=== PATIENT | male | born 1960 | race African-American/Black ===

== ENCOUNTER 2025-07-22 20:33 | Emergency (ER) | payer MEDICARE, SELFPAY ==
--- OUTSIDE RECORDS SUMMARY | 2025-07-09 17:40 | XMS_ITS | Encounter Summary ---
Author Organization [facility] Address [address] [place] [address] Care Team Providers Care Medicine Tech Name Role Phone Consultants, General Medical Primary Care Provid er Unavailable Reason for Visit * ReasonCommentsDental Pain Encounter Details DateTypeDepartmentCare Team (Latest Contact Info)Rnbschmnmkg35/30/2025 5:40 PM EST - 07/09/2025 6:27 PM [facility] Emergency Department [address] [place] [address] Virgil Sanderson Jr., MD [address] [place] [address] Discharge Disposition: Home Social History Tobacco UseTypesPacks/DayYears UsedDateSmoking Tobacco: Every DayCigarettes Smokeless Tobacco: NeverAlcohol UseStandard Drinks/WeekCommentsNo0 (1 standard drink = 0.6 oz pure alcohol)Sex and Gender InformationValueDate RecordedSex Assigned at BirthNot on fileLegal QgzWkwh7905/01/2015 4:12 AM EDTGender Identity Not on fileSexual OrientationNot on filedocumented as of this encounter Last Filed Vital Signs Vital SignReadingTime TakenCommentsBlood Mwegpgvp101/9911 5:43 PM EST Osuiz828407/09/2025 5:43 PM SGQZfnjciupvgr10.5 ??C (97.7 ??F)07/09/2025 5:43 PM ESTRespiratory Rjjz827809/08/2024 5:43 PM ESTOxygen Fgmicyzors62%07/09/2025 5:43 PM ESTInhaled Oxygen Concentration--Mpbqlv546.3 kg (230 lb)07/09/2025 5:43 PM PBVAifffi588.9 cm (6')07/09/2025 5:43 PM ESTBody Mass Index31.19109/08/2024 5:43 PM ESTdocumented in this encounter Discharge Instructions * Attachments The following attachments cannot be sent through Care Everywhere. * Tooth and Gum Pain (Turkish) documented in this encounter Medications at Time of Discharge MedicationSigDispense QuantityRefillsLast FilledStart DateEnd Date ferrous sulfate 325 (65 FE) MG tablet TAKE 1 TABLET BY MOUTH EVERY OTHER IWJ03604/22/2017 gabapentin (NEURONTIN) 400 MG capsule HUMIRA PEN 40 mg/0.8 mL PnKt Pen Injector 05/04/2017 lisinopril (PRINIVIL,ZESTRIL) 40 MG tablet TAKE 1 TABLET BY MOUTH EVERY ETB45904/22/2017 metFORMIN (GLUCOPHAGE) 850 MG tablet TAKE 1 TABLET BY MOUTH THREE TIMES BNYMF618 omeprazole (PRILOSEC) 20 MG capsule TAKE 1 CAPSULE BY MOUTH EVERY XQW424 ondansetron (ZOFRAN) 4 MG tablet TAKE 1 TABLET BY MOUTH EVERY EIGHT HOURS NEEDED for bulhbs920 doxycycline hyclate (VIBRA-TABS) 100 MG tablet Take 1 (one) tablet (100 mg total) by mouth 2 (two) times a day for 6 doses Start: 07/10/25. 6 tablet HYDROcodone-acetaminophen (NORCO) 5-325 mg per tablet Indications:Pain, dentalTake 1 (one) tablet by mouth every 6 (six) hours as needed for pain TAKE HOME PACK . 4 tablet documented as of this encounter ED Notes * Virgil Sanderson Jr., MD - 07/09/2025 5:44 PM EST ED PROVIDER NOTE [facility] EMERGENCY DEPARTMENT NAME: Last Perez AGE: 64 y.o. : 1960 VISIT DATE: 07/09/2025 CSN: [id number] PCP: Consultants, General Medical Chief Complaint Patient presents with Dental Pain Patient with increasing pain in his right upper and lower teeth over the past couple of months . He has an appointment scheduled for this Saturday, July 12, 2025 with a dentist for the first time in over 20 years . He recently took clindamycin which does not work as well as doxycycline for me . Past Medical History: Diagnosis Date COPD (chronic obstructive pulmonary disease) (HCC) Diabetes (HCC) GERD (gastroesophageal reflux disease) Hidradenitis HTN (hypertension) Past Surgical History: Procedure Laterality Date EXAM UNDER ANESTHESIA GENERAL 04/28/2017 rectal exam for shania-anal abscess...Crushing Foreman I AND D PERIANAL ABCESS 04/28/2017 Crushing Foreman History reviewed. No pertinent family history. Social History [1] Previous Medications Medication Sig ferrous sulfate 325 (65 FE) MG tablet TAKE 1 TABLET BY MOUTH EVERY OTHER DAY gabapentin (NEURONTIN) 400 MG capsule HUMIRA PEN 40 mg/0.8 mL PnKt Pen Injector lisinopril (PRINIVIL,ZESTRIL) 40 MG tablet TAKE 1 TABLET BY MOUTH EVERY DAY metFORMIN (GLUCOPHAGE) 850 MG tablet TAKE 1 TABLET BY MOUTH THREE TIMES DAILY omeprazole (PRILOSEC) 20 MG capsule TAKE 1 CAPSULE BY MOUTH EVERY DAY ondansetron (ZOFRAN) 4 MG tablet TAKE 1 TABLET BY MOUTH EVERY EIGHT HOURS NEEDED for nausea Allergies[2] Review of Systems HENT: Positive for dental problem. All other systems reviewed and are negative. Patient Vitals for the past 24 hrs: BP Temp Temp src Pulse Resp SpO2 Height Weight 07/09/25 1743 (!) 157/99 97.7 ??F (36.5 ??C) Oral 92 16 99 % 6' 104.3 kg (230 lb) Physical Exam Vitals and nursing note reviewed. Constitutional: Appearance: Normal appearance. HENT: Head: Normocephalic and atraumatic. Right Ear: External ear normal. Left Ear: External ear normal. Nose: Nose normal. Mouth/Throat: Mouth: Mucous membranes are moist. Dentition: Abnormal dentition. Dental caries present. No gingival swelling or dental abscesses. Pharynx: Oropharynx is clear. No pharyngeal swelling. Eyes: Extraocular Movements: Extraocular movements intact. Conjunctiva/sclera: Conjunctivae normal. Cardiovascular: Rate and Rhythm: Normal rate. Musculoskeletal: General: Normal range of motion. Cervical back: Normal range of motion. Pulmonary: Effort: Pulmonary effort is normal. Abdominal: General: There is no distension. Skin: General: Skin is warm and dry. Neurological: General: No focal deficit present. Mental Status: He is alert and oriented to person, place, and time. Psychiatric: Mood and Affect: Mood normal. Behavior: Behavior normal. Laboratory & Radiographic Imaging (if done): No results found for this visit on 07/09/25. No orders to display Procedures Medical Decision Making I will provide the patient with doxycycline to use until he is seen by the dentist at his previously scheduled appointment on July 12, 2025. I will give him a home pack of 4 hydrocodone/acetaminophen pills to use as needed if the pain is severe. I asked him to return and be reevaluated in the ERfor change worsening or new concern that arises. Amount and/or Complexity of Data Reviewed External Data Reviewed: notes. Details: 06/30/25 ER The patient has been informed that they may have pre-hypertension or hypertension based on a blood pressure reading in the Emergency Department. I recommend that the patient call the primary care provider listed on their discharge instructions or a physician of their choice as soon as possible to arrange follow-up in the next 4 weeks for further evaluation of possible pre-hypertension or hypertension. . Clinical Impression: 1. Pain, dental ED Disposition ED Disposition Discharge Condition Stable Comment Last Perez discharged to home/self care in stable condition. Follow-up Information Follow-up information has not been specified. Contact information for after-discharge care Follow-up information has not been specified. New Prescriptions doxycycline hyclate (VIBRA-TABS) 100 MG tablet Starting on 07/10/2025. Take 1 (one) tablet (100 mg total) by mouth 2 (two) times a day for 6 doses Start: 07/10/25. HYDROcodone-acetaminophen (NORCO) 5-325 mg per tablet Take 1 (one) tablet by mouth every 6 (six) hours as needed for pain TAKE HOME PACK . [1] Social History Socioeconomic History Marital status: Single Tobacco Use Smoking status: Every Day Current packs/day: 1.00 Types: Cigarettes Smokeless tobacco: Never Vaping Use Vaping status: Never Used Substance and Sexual Activity Alcohol use: No Drug use: No Social Drivers of Health Financial Resource Strain: Low Risk (05/10/2024) [facility] Overall Financial Resource Strain (CARDIA) Difficulty of Paying Living Expenses: Not hard at all Food Insecurity: No Food Insecurity (09/20/2024) Received from [facility] Hunger Vital Sign Within the past 12 months, you worried that your food would run out before you got the money to buymore.: Never true Within the past 12 months, the food you bought just didn't last and you didn't have money to get more.: Never true Transportation Needs: No Transportation Needs (09/20/2024) Received from [facility] PRAPARE - Transportation Lack of Transportation (Medical): No Lack of Transportation (Non-Medical): No Physical Activity: Inactive (05/05/2023) Received from [facility] Exercise Vital Sign On average, how many days per week do you engage in moderate to strenuous exercise (like a brisk walk)?: 0 days On average, how many minutes do you engage in exercise at this level?: 0 min Housing Stability: Low Risk (09/20/2024) Received from [facility] Housing Stability Vital Sign In the last 12 months, was there a time when you were not able to pay the mortgage or rent on time?: No In the past 12 months, how many times have you moved where you were living?: 0 At any time in the past 12 months, were you homeless or living in a snf (including now)?: No [2] Allergies Allergen Reactions Naproxen Nauseated only Sulfa (Sulfonamide Antibiotics) Virgil Sanderson Jr., MD 07/09/25 1800 * Nyasia Gibson RN - 07/09/2025 5:41 PM EST Pt c/o right sided dental pain in upper and lower jaw that has gradually been getting worse, becameunbearable this afternoon. documented in this encounter Plan of Treatment Not on file documented as of this encounter Visit Diagnoses Diagnosis Pain, dental- Primary documented in this encounter Administered Medications Medication OrderMAR ActionAction DateDoseRateSite doxycycline (VIBRAMYCIN) oral solid 100 mg 100 mg, Oral, Once, On 07/09/25 at 1800, For 1 dose, Do not crush or open. Patient to sit up after administration for 30 minutes after taking and take with at least 8 ounces of water Take 1 hour before or 4 hours after metallic cations (e.g.antacids, aluminum,magnesium, calcium, ferrous sulfate), Indication: Periodontitis Given07/09/2025 6:16 PM EPI946 mgdocumented in this encounter Active and Recently Administered Medications Times are shown in EST.Medication Order// doxycycline (VIBRAMYCIN) oral solid 100 mg (COMPLETED) 100 mg, Oral, Once, On 07/09/25 at 1800, For 1 dose, Do not crush or open. Patient to sit up after administration for 30 minutes after taking and take with at least 8 ounces of water Take 1 hour before or 4 hours after metallic cations (e.g.antacids, aluminum,magnesium, calcium, ferrous sulfate), Indication: Periodontitis * 1815 (Given - Provider: Nyasia Gibson RN) documented in this encounter Care Teams Team MemberRelationshipSpecialtyStart DateEnd Date Consultants, General Medical PCP - GeneralInternal Medicine05/05/17documented as of this encounter
--- OUTSIDE RECORDS SUMMARY | 2025-07-13 05:45 | XMS_ITS ---
Author Organization [facility] Address [address] [place] [address] Care Team Providers Care Procedure Writer Name Role Phone Dr. 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 Encounter Location Date Provider Diagnosis [facility] [address] [place] [address] 2024 Sea Mac Plan Of Treatment Next Appt Details Provider Name:Eveline Medrano, 10/25/2025 01:30:00 PM, [address], [place], [address], Provider Name:Sea Mac, 0 11/21/2025 04:30:00 PM, [address] [place], [address], Progress Notes * FIONA BROWN KDOB:0 1960 (64 yo M)Acc No.[id number]:07/13/2025 Patient:?FIONA BROWN :?Sea Mac, DDSDOB:1960???Age:64 Y???Sex: MaleDate:07/13/2025Phone:[phone]:[address] [place] [id number] Subjective: * Chief Complaints: * N P EXAM * Electronic signature of Dr. Sea Mac , [facility], [id number] on 07/22/2025 at 09:12 PM ESTSign off status: Pending * Provider: Mechelle Mac DDS Date: 1 09/13/2024 Generated for Printing/Faxing/eTransmitting on:?07/22/2025 09:12 PM EST
--- OUTSIDE RECORDS SUMMARY | 2025-07-15 17:07 | XMS_ITS | Continuity of Care Document ---
Author Organization [facility] Address [address] [place] [address] Phone Care Team Providers Care It Service Continuity Supervisor Name Role Phone César Mazariegos PA-C Emergency Provider Hansel Potts MD Primary Care Provider Care Teams Patient Care Team Team Status: Active Member Role/Relationship Status Dates Hansel Potts MD Primary Care Provider Active Patient Care Team Team Status: Inactive Member Role/Relationship Status Dates César Mazariegos PA-C Emergency Provider Active Start: July 15, 2025 End: July 15, 2025Magaly Jaquez Care ProviderActiveStart: July 15, 2025 End: July 15, 2025 Chief Complaint and Reason for Visit Chief Complaint Admit Date Dental Pain July 15, 2025 9 :19pm Allergies, Adverse Reactions, Alerts Allergen Type Severity Reaction Last Updated Verified Status Sulfa (Sulfonamide Antibiotics) Allergy Unknown Abdominal Pain July 15 10:00pm Yes Active Social History Smoking Status Status Start Date End Date Date of Observa tion Smokes tobacco daily (finding) July 15, 2025 9:43pm Observation Status Observation Response Date of Response Legal Sex Male (finding) Sex Assigned At [facility] 1960 Problems Active Problems Problem Diagnosis/Recorded Date Onset Date Stat us Toothache July 15, 2025 9:41pm Unknown Ac tive Inactive/Resolved Problems Problem Diagnosis/Recorded Date Onset Date Stat us Generalized abdominal pain February 09, 2025 9:50am Unkno wn Resolved Medications Medication Status Dose Units Route Directions Qty Days Refills S tart Date Stop Date End Date Reason(s) Instructions Adherence Metformin 1,000 mg tablet Active 1000 MG PO Daily February 08, 2025 11:00pmUnknownGlipizide 5 mg zifhtnKdmqyw8LTUNQbtaxIbfe 2024 11:00pmUnknownGabapentin 600 mg txpqalLizdaw360LQWVWssrzQjrc 2024 11:00pm UnknownBuspirone 15 mg doxfppIqtcnc93KHBRWmfsi times dailyJuly 2024 11:00pm UnknownHydroxyzine Pamoate 25 mg fupaqwtBukgaz98MUXLYrrii times dailyJuly 2024 11:00pmUnknownOmeprazole 20 mg capsule,delayed release(DR/EC)Itdmjl01MUBF DailyJuly 2024 11:00pmUnknownDicyclomine 20 mg cwhshlDkiyww22DQRLIpqy times daily as needed for abdominal ngwq029Hoil2024 11:00pmUnknownOndansetron 4 mg tablet,dvggcawqajhdxmBsayxu5HQFYMjtyp times daily as needed for nausea and hotnusyj4075Vjyz 2nd, 2025 11:00pmUnknownPenicillin V Potassium 500 mg tablet Rpehkw8923DDFLIorpd zqzor548Soabptfm 6th, 2025 12:00amUnknownChlorhexidine Gluconate 0.12 % qkjimuboaQixpeb17LKGAULVGOfrxr iaijk8025Uwhhsfgy 6th, 2025 12:00amUnknown Vital Signs Vital Reading Result Reference Range Collection Date/Time Height 72 [in_i] July 15, 2025 9:52oiCckuzy022.40 kgDece2024 9:22pmBody Xcjbvojiygu40.6 [degF]97.6-99.0Dece2024 9:22pmHeart Rate95 /gqb35-969 July 15, 2025 9:22pmRespiratory rate18 /hwj40-24Qdszlmuj 6th, 2025 9:22pm Oxygen saturation by Pulse ktxizmdk79 %95-100July 15, 2025 9:22pmBP Lracyczw509 mm[Hg]100-140Dece2024 9:22pmBP Cugzbpdlo18 mm[Hg]60-100 July 15, 2025 9:22pm Advance Directives Advance Directive Response Recorded Date/ Time Advance Directives No February 09 7:50am Insurance Providers Guarantor Last Hodge ey Address [address] [place] [id number] Info.Home Phone: Coverage Status Update:2025 Payer Group Member ID Coverage Type Subscriber Relationship to Subscriber Effective Date Expiration Date Medicaid [id number] K Mckinney Id: [id number] [address] [place] [id number] Home Phone: [employer] [id number] K Mckinney Id: [id number] [address] [place] [address] Home Phone: [employer] [id number] K Mckinney Id: [id number] [address] [place] [address] [facility] Phone: [facility] Id: [id number] K Mckinney Id: [id number] [address] [place] [phone] Home Phone: Self Encounters Encounter Location(s) Arrival/Admit Date Discharge/Departure Date Discharge/Departure Disposition Provider(s) Departed Emergency -Emergency Room July 15, 2025 9:19pm July 15, 2025 10:05pm Discharged to home care or self care (routine discharge) Plan of Treatment Future Tests Future scheduled test information is unavailable Pending Tests Pending diagnostic test information is unavailable Future Visits Future appointment information is unavailable Future Procedures Future procedure information is unavailable Future Medications Future medication information is unavailable Patient Instructions Instruction Admit Date Dental pain - ED discharge instructions July 15, 2025 9:19pm Hospital Discharge Instructions Additional Instructions Patient Instructions: You came to the ER today with dental pain. Dental pain is often caused by irritation of the nerves in the center of a tooth. This irritation can be due to a cavity, an infection, a cracked tooth, or gum disease. Based on your exam, you have no fever, and are not immunocompromised. Your airway is clear, and there are no signs of serious infections like a retropharyngeal abscess, peritonsillar abscess, or Claus???s angina. Your throat and mouth exam showed no bleeding sockets, or other concerning findings. You have no issues with your breathing. You are advised to continue managing your pain with vxho-juk-zzfrskk medications like ibuprofen (Advil) or acetaminophen (Tylenol) until you can see a dentist. If prescribed any medications, please take them as directed. Things to watch for and reasons to come back include: - Trouble breathing or swallowing - Swelling in your face or neck - Fever or chills - Difficulty opening or closing your mouth - Signs of infection, such as pus or red streaks around the area In the meantime, here are some tips to manage your pain: - Apply ice or a cold pack to the outside of your cheek for 10-20 minutes at a time. Use a thin cloth between the ice and your skin. Do not use heat. - Avoid very hot, cold, or sweet foods and drinks that may make your pain worse. - Rinse your mouth with warm salt water every 2 hours to help with pain and swelling. Mix 1 teaspoon of salt in 8 ounces of water. - Avoid smoking or using spit tobacco, as it can slow healing and make gum problems worse. If your symptoms worsen or you have any concerns, don???t hesitate to seek further medical care. Follow up with your dentist for a more detailed evaluation and treatment. It is very important that you follow up with your dentist or primary care provider in the next 1-2 days unless instructed to do otherwise. If you do not have a dentist please let staff know so you can be given information or use the [employer] website at [email or web address].org for providers in your area. If you do not have a primary care provider, you can contact the [facility] and ask about being established for primary care services. If you require specialist follow up, such as with an orthopedic physician, maintenance and custodian supervisor, urologist, or other medical specialty, you should contact the specialty clinic as soon as possible to schedule a follow up appointment. If you are established with a specialist, you can contact your preferred physician for follow up. If you are not already established with the specialist you need, you may have contact information provided to you with these discharge instructions. If you are being prescribed medications, take exactly as prescribed. Antibiotics, if prescribed, should be taken until the entire course is completed. You should not have left over antibiotics. Continue to take any previously prescribed home medications unless instructed otherwise. If you are experiencing fever or mild to moderate pain, you should first take Tylenol or ibuprofen available quzn-zoq-rudrncj. Medications, if prescribed to treat pain from the emergency department, are intended to provide relief for severe pain that is not relieved by other methods of pain relief, you should use these medications cautiously as many are known to cause sedation/sleepiness, increased risk for falls, and other effects such as constipation. If your symptoms worsen please return to the ED or if you have any other concerns
--- OUTSIDE RECORDS SUMMARY | 2025-07-19 06:07 | XMS_ITS | Continuity of Care Document ---
Author Organization [facility] Address [address] [place] [address] Phone Care Team Providers Care Radiology Transporter Name Role Phone Shaye De La Cruz DDS Unavailable Unavailable Allergies, Adverse Reactions, Alerts Substance Reaction Status Criticality Sulfa (Sulfonamide Antibiotics) Active No Information Medications Medication Instructions Dosage Effective Dates (start - stop) Status Comments hydrocodone 5 mg-acetaminophen 325 mg tablet TAKE 1 TABLET BY MOUTH EVERY 6 HOURS NEEDED - Active buspirone 15 mg tablet - Act nisha chlorhexidine gluconate 0.12 % mouthwash - Active penicillin V potassium 500 mg tablet - Active doxycycline hyclate 100 mg tablet TAKE 1 TABLET BY MOUTH TWICE DAILY for 6 (SIX) doses. - Active hydroxyzine pamoate 25 mg capsule TAKE 1 CAPSULE BY MOUTH THREE TIMES DAILY NEEDED FOR ITCHING or FOR ANXIETY - Active gabapentin 600 mg tablet - Active lisinopril 40 mg tablet - Ac tive clindamycin HCl 300 mg capsule TAKE 1 CAPSULE BY MOUTH TWICE DAILY FOR 10 DAYS - Active naproxen 500 mg tablet TAKE 1 TABLET BY MOUTH TWICE DAILY WITH MEALS FOR 10 DAYS - Active amitriptyline 50 mg tablet TAKE 1 TABLET BY MOUTH NIGHTLY NEEDED for sleep - Active atorvastatin 40 mg tablet - Active glipizide ER 5 mg tablet, extended release 24 hr - Active metformin 1,000 mg tablet TAKE 1 TABLET BY MOUTH TWICE DAILY WITH MEALS - Active omeprazole 20 mg capsule,delayed release TAKE 1 CAPSULE BY MOUTH IN THE MORNING and AT BEDTIME - Active albuterol sulfate HFA 90 mcg/actuation aerosol inhaler inhale 2 (TWO) puffs every 6 (SIX) hours NEEDED max OF EIGHT puffs per 24 hours - Active glipizide 5 mg tablet - Acti ve pantoprazole 40 mg tablet,delayed release - Active duloxetine 30 mg capsule,delayed release TAKE 2 CAPSULES BY MOUTH DAILY at 6 (SIX) a.m. - Active amoxicillin 875 mg-potassium clavulanate 125 mg tablet Take 1 tablet by mouth 2 times daily for 10 days - Active amlodipine 5 mg tablet TAKE ONE TABLET B Y MOUTH DAILY AT 9AM - Active dicyclomine 20 mg tablet - Active cephalexin 500 mg capsule - Active Symbicort 160 mcg-4.5 mcg/actuation HFA aerosol inhaler - Active tadalafil 20 mg tablet TAKE 1 TABLET BY MOUTH 1 to 2 (TWO) hours prior to intercourse DIRECTED NEEDED for erectile dysfunction - - do not exceed 20 mg within 24 hours - Active Dexcom G7 Computer Lab Assistant USE DIRECTED - A ctive Dexcom G7 Sensor device USE DIRECTED - Active Ear Drops (carbamide peroxide) 6.5 % place 5 (FIVE) drops in ear(s) TWICE DAILY - Active lidocaine 5 % topical patch APPLY 1 patch topically DAILY - - 12 hours on and 12 hours off DAILY - Active prednisone 20 mg tablet TAKE 3 TABLETS B Y MOUTH EVERY DAY FOR 2 DAYS, TAKE 2 TABLETS EVERY DAY FOR 2 DAYS, TAKE 1 TABLET EVERY DAY FOR 4 DAYS, then TAKE 1/2 (ONE-HALF) OF A TABLET EVERY DAY FOR 4 DAYS - Active brompheniramine-pseudoe phedrine-DM 2 mg-30 mg-10 mg/5 mL oral syrup TAKE 5 (FIVE) mLs BY MOUTH FOUR TIMES DAILY NEEDED for cold SYMPTOMS - Active amoxicillin 500 mg capsule TAKE 1 CAPSULE BY MOUTH THREE TIMES DAILY FOR 7 DAYS - Active Procedures Procedure Date Limited Oral Eval Oral Hygiene Instruction Advance Directives Directive Yes / No Effective Date File Name No Information Encounters Encounter Description Practice Location Reason(s) For Visit Diagnoses Date Provider Providers Copied on Encounter [facility], [address] [place] [address], [place], [place], [id number], tel:[phone] [facility] ER (chief complaint) Body mass index [BMI] 29.0-29.9, adultEncounter for screening for dental disorders Dorothy YDE Shaye. . tel:[phone] Family History Family Member Type Diagnosis Age At Onset No Information Payers Payer name Insurance type Covered libertarian ID Jean esquivel(s) [facility] [id number] Social History Type Description Quantity Date Captured Comments Alcohol Use Details Unknown Caffeine Use Details Unknown Tobacco Use Status Smoking Status Current every day smoker 2024 Non-Smoking Tobacco Use Details : No Details Available : No Details Available [id number] SexMale Vital Signs Date / Time: Height Weight BMI Pulse Rate Blood Pressure Temperature Respiratory Rate Body Surface Area Head Circumference Head Circ. Percentile Wt./Alexis. Percentile BMI percentile Pulse Ox Inhaled Ox 11:23 AM 72.00 in 99.790 kg (220.00 lbs) 29.8 4 kg/m eter (2) 130/80 mm[Hg] 98.10 F 2.25 meter(2) Chief Complaint And Reason For Visit From encounter dated '07/19/2025 11:07'. ER (chief complaint). Description: ER Reason For Referral Reason For Referral No Information Plan Of Treatment Date Type Action Status Goal Lipid panel. Due on 025 due Goal Unhealthy drug use screening . Due on due Goal Zoster vaccine (1st). Due on due Goal Hep A. Due on du e Goal Depression screening. Due on due Goal Influenza vaccine. Due on due Goal FOBT. Due on due Goal Tdap. Due on due Goal PRAPARE ASSESSMENT. Due on due Goal FIT-DNA. Due on due Goal CT-Colonography. Due on due Goal Colonoscopy. Due on due Goal Hepatitis C screening. Due o n due Goal FIT. Due on due Goal Tdap Vaccine. Due on 2024 due Goal Dietary management education , guidance, and counseling completed Referral Ordered: Weight management: Referral to general physician timeframe: 6 Months. (related to Body mass index [BMI] 29.0-29.9, adult) ordered History Of Present Illness Encounter Date Complaint History Of Prese nt Illness ER ER Functional Status Date Functional Assessmen t No Information Instructions Date Instruction Additional Infor mation Giving encouragement to exercise Related to Body mass index [BMI] 29.0-29.9, adult Dietary management e ducation, guidance, and counseling Related to Body mass index [BMI] 29.0-29.9, adult Assessments Type Assessment Date assessment Body mass index [BMI] 29.0-29.9, adult Patient Care Teams Name Effective Dates (start - stop) Status Members No Information
[2025-07-22 20:40] VITALS: BP 173/99; PULSE 88; TEMP 36.7; O2SAT 100; BMI 27.1
--- NOTE | 2025-07-22 21:03 | PC.NURSE ---
Broken tooth to bottom right jaw, tooth pain to upper right jaw.
--- OUTSIDE RECORDS SUMMARY | 2025-07-22 21:12 | XMS_ITS | Clinical Summary ---
Author Organization [facility] Address [address] [place] [address] Phone Care Team Providers Care Cistern Room Working Supervisor Name Role Phone Zachariah Acosta PA-C Primary Care Provid er Social History Tobacco UseTypesPacks/DayYears UsedDateSmoking Tobacco: Never AssessedSex and Gender InformationValueDate RecordedSex Assigned at BirthNot on fileLegal Sex Male07/05/2022 4:42 PM ESTGender IdentityNot on fileSexual OrientationNot on file Last Filed Vital Signs Vital SignReadingTime TakenCommentsBlood Pderbzdi252/8603 1:20 PM EST Qeyey544410/11/2019 1:20 PM ESTTemperature--Respiratory Rate--Oxygen Saturation-- Inhaled Oxygen Concentration--Yxntkx429 kg (228 lb)10/11/2019 1:20 PM ESTHeight 182.9 cm (6')10/11/2019 1:20 PM ESTBody Mass Index30.9203 1:20 PM EST Plan of Treatment Not on file Care Teams Team MemberRelationshipSpecialtyStart DateEnd Date Zachariah Acosta PA-C [address] [place] [id number] PCP - General09/23/19
--- OUTSIDE RECORDS SUMMARY | 2025-07-22 21:12 | XMS_ITS | Clinical Summary ---
Author Organization [facility] Address [facility] [place] [address] Care Team Providers Care Engineer Fishing Vessel Name Role Phone Consultants, General Medical Primary Care Provid er Unavailable Allergies Active AllergyReactionsCriticalityNoted DateCommentsNaproxenNauseated onlyMedium 07/09/2025Sulfa (Sulfonamide Antibiotics)05/04/2017 Medications MedicationSigDispense QuantityRefillsLast FilledStart DateEnd DateStatus metFORMIN (GLUCOPHAGE) 850 MG tablet TAKE 1 TABLET BY MOUTH THREE TIMES [id number] lisinopril (PRINIVIL,ZESTRIL) 40 MG tablet TAKE 1 TABLET BY MOUTH EVERY GXG15304/22/2017Active gabapentin (NEURONTIN) 400 MG capsule Active ferrous sulfate 325 (65 FE) MG tablet TAKE 1 TABLET BY MOUTH EVERY OTHER XXN38104/22/2017Active HUMIRA PEN 40 mg/0.8 mL PnKt Pen Injector 05/04/2017Active omeprazole (PRILOSEC) 20 MG capsule TAKE 1 CAPSULE BY MOUTH EVERY TNO743Active ondansetron (ZOFRAN) 4 MG tablet TAKE 1 TABLET BY MOUTH EVERY EIGHT HOURS NEEDED for htuysq014Active doxycycline hyclate (VIBRA-TABS) 100 MG tablet Take 1 (one) tablet (100 mg total) by mouth 2 (two) times a day for 6 doses Start: 07/10/25. 6 tablet Expired HYDROcodone-acetaminophen (NORCO) 5-325 mg per tablet Indications:Pain, dentalTake 1 (one) tablet by mouth every 6 (six) hours as needed for pain TAKE HOME PACK . 4 tablet /10/2024Expired Active Problems ProblemNoted DateDiagnosed DateAbscess, clfdtdmi71/26/2017Suppurative yjobbskhjksw92/26/2017 Encounters DateTypeDepartmentCare TdpqZhxnshckqjm68/30/2025 5:40 PM EST - 07/09/2025 6:27 PM [facility] [address] [place] [address] Virgil Sanderson Jr., MD Discharge Disposition: Home07/09/2025Travelfrom Last 3 Months Social History Tobacco UseTypesPacks/DayYears UsedDateSmoking Tobacco: Every DayCigarettes Smokeless Tobacco: NeverAlcohol UseStandard Drinks/WeekCommentsNo0 (1 standard drink = 0.6 oz pure alcohol)Sex and Gender InformationValueDate RecordedSex Assigned at BirthNot on fileLegal CmdVtam9305/01/2015 4:12 AM EDTGender Identity Not on fileSexual OrientationNot on file Last Filed Vital Signs Vital SignReadingTime TakenCommentsBlood Pzdtoqqa800/9907/09/2025 5:43 PM EST Npato522107/09/2025 5:43 PM IXCTfnsyecllii86.5 ??C (97.7 ??F)07/09/2025 5:43 PM ESTRespiratory Bvva310709/08/2024 5:43 PM ESTOxygen Mloabahxhu49%07/09/2025 5:43 PM ESTInhaled Oxygen Concentration--Yaajeg471.3 kg (230 lb)07/09/2025 5:43 PM KGEGatglb866.9 cm (6')07/09/2025 5:43 PM ESTBody Mass Index31.19109/08/2024 5:43 PM EST Plan of Treatment Health MaintenanceDue DateLast DoneCommentsCT Jkytazwrwoeq65/08/1963Fecal DNA 1962Fecal occult blood test (FOBT,FIT)1962PSA Level1962 Medicare Wellness Visit1965Diabetic Eye Exam1972Diabetic Foot Exam 1972Urine (micro)albumin/creatinine ratio - Tpimjntg12/08/1973Depression Screening/Follow-Up (PHQ-2/9)1974HIV Dmqcuellk43/08/1978Hepatitis C Kljbkkqwt39/08/1981Pneumococcal Vaccine: 50+ Years (1 of 2 - PCV)1981 Flexible vwtbnpolbrnzg50/08/2013Zoster Vaccines (1 of 2)2012eGFR ??? Qfgferbp47, 04/28/2017Tetanus/Diphtheria/Pertussis (1 - Tdap) /OVID-19 Vaccine (3 - 2024- season)/, 12/20/2020Influenza Vaccine (#1)5A1C, 01/02/2020, 04/18/20190318Zpfcagavxpu41Colorectal Cancer Screening/Monitoring 06/20/2029RSV Vaccines (1 - 1-dose 75+ series)2037HIB VaccinesAged OutNo longer eligible based on patient's age to complete this topicHPV VaccinesAged OutNo longer eligible based on patient's age to complete this topicHepatitis A VaccinesAged OutNo longer eligible based on patient's age to complete this topic Hepatitis B VaccinesAged OutNo longer eligible based on patient's age to complete this topicIPV VaccinesAged OutNo longer eligible based on patient's age to complete this topicMeningococcal ACWY VaccineAged OutNo longer eligible based on patient's age to complete this topicMeningococcal B VaccineAged OutNo longer eligible based on patient's age to complete this topicRotavirus VaccinesAged Out No longer eligible based on patient's age to complete this topic Procedures Procedure NamePriorityDate/TimeAssociated DiagnosisCommentsMHS - CHEMG (BASIC METABOLIC AND MG)Guqqmtv4704/29/2017 5:23 AM EDT from Last 3 Months or Most Recently Relevant to Health Maintenance Results * (ABNORMAL) CHEMG (Basic Metabolic and Mg) (04/29/2017 5:23 AM EDT)Component ValueRef RangeTest MethodAnalysis TimePerformed AtPathologist SignatureGlucose 128(H)70 - 99 mg/dLOHDETWILER MEMORIAL HOSPITALComment: This test result might be falsely depressed or falsely elevated on samples drawn from patients taking Sulfasalazine and Sulfapyridine. Venipuncture should occur prior to taking either of these drugs. MTY508 - 25 mg/dLUNIVERSITY HOSPITALS SAMARITAN MEDICAL CENTERCreatinine0.740.50 - 1.30 mg/dL [facility] MEDICAL CENTEReGFR>=60ml/min/1.73sq.[facility] Doctors HospitalComment: Non- GFR Calc eGFR is an estimated Glomerular Filtration Rate based on the value of the patient's serum creatinine. In outpatients, eGFR should be used as a helpful tool in screening for CKD. In inpatients or patients with acute renal failure, eGFR represents the GFR at the moment of the draw and should be used with caution. eGFR >=60ml/min/1.73sq.[facility] Doctors HospitalComment: GFR CalcCalcium8.58.4 - 10.2 mg/dLUNIVERSITY HOSPITALS SAMAR[facility]ENTER Sfdrzd593970 - 145 mmol/[facility] CENTERPotassium3.83.5 - 5.1 mmol/[facility] MEDICAL CENTERChloride10398 - 108 mmol/[facility] MED[facility] CENTERCO22421 - 32 mmol/[facility] MED[facility] CENTERMagnesium1.6 1.6 - 2.4 mg/dLWRIGHT-PATTERSON MEDICAL CENTERpecimen (Source)Anatomical Location / LateralityCollection Method / VolumeCollection TimeReceived TimeBlood specimen (specimen)04/29/2017 5:23 AM EDT Narrative Authorizing ProviderResult TypeResult StatusDonnamarie Charting Clerk EMILE BLOOD ORDERABLESFinal ResultPerforming OrganizationAddressCity/State/ZIP CodePhone Number [facility] [address] [place] [address] from Last 3 Months or Most Recently Relevant to Health Maintenance Insurance Care Teams Team MemberRelationshipSpecialtyStart DateEnd Consultants, General Medical PCP - GeneralInternal Medicine05/05/17
--- OUTSIDE RECORDS SUMMARY | 2025-07-22 21:13 | XMS_ITS | Clinical Summary ---
Author Organization [facility] Address [address] [place] [address] Care Team Providers Care Heel Curver Name Role Phone Ralph Lizama (Historical) Primary Care Provider Unavailable Allergies Active AllergyReactionsCriticalityNoted DateCommentsSeasonal AllergiesOther: See Axrunijm86/07/2013 hayfever-sneezing, runny nose Sulfa (Sulfonamide Antibiotics)GI Upset09/16/2012 Medications MedicationSigDispense QuantityRefillsLast FilledStart DateEnd DateStatus naproxen sodium (ALEVE) 220 mg cap Take by mouth as needed.Active oxyCODONE-acetaminophen (PERCOCET) 5-325 mg tablet Take 1 tablet by mouth every 6 hours as needed.Active RANITIDINE HCL (ZANTAC ORAL) Take by mouth twice daily.Active metFORMIN 850 mg tablet Take 850 mg by mouth twice daily with meals.Active lisinopril 20 mg tablet Take 40 mg by mouth once daily.Active ondansetron (ZOFRAN) 4 mg tablet Take 4 mg by mouth every 8 hours as needed.Active Clindamycin Phosphate (CLEOCIN T) 1 % lotion Apply to areas of hidradenitis twice a day 2 Bottle 11005/02/2016Active ESOMEPRAZOLE MAGNESIUM (NEXIUM ORAL) Take by mouth.Active peg 3350-Electrolytes (GOLYTELY) 236-22.74-6.74 -5.86 gram suspension Take as directed starting at 7 PM tonight. 1 Bottle Active ferrous sulfate 325 mg (65 mg iron) tablet Take 325 mg by mouth daily with breakfast.Active gabapentin (NEURONTIN) 400 mg capsule Take 400 mg by mouth three times daily.Active OMEPRAZOLE ORAL Take by mouth.Active doxycycline monohydrate (MONODOX) 100 mg capsule Take 1 capsule by mouth twice daily. 60 capsule Active Adalimumab (HUMIRA PEN) 40 mg/0.8 mL pnkt Inject 40 mg subcutaneously once weekly 4 Pen Active amitriptyline (ELAVIL) 50 mg tablet Take 1 tablet by mouth daily at bedtime. 90 tablet 04/28/2025 9:32 PM EDT5Active busPIRone (BUSPAR) 15 mg tablet Take 1 tablet by mouth three times a day. 270 tablet 04/28/2025 9:32 PM EDT5Active glipiZIDE (GLUCOTROL XL) 5 mg 24 hr tablet Take 1 tablet by mouth daily with food. 90 tablet 5Active metFORMIN (GLUCOPHAGE) 1,000 mg tablet Take 1 tablet by mouth two times a day with meals. 180 tablet 04/28/2025 9:[address] (PROTONIX) 40 mg tablet take one tablet by mouth daily at 6:00 AM Additional instructions: 1/2 to 1 hour before morning meal 90 tablet 04/26/2025 9:33 PM EDT5Active glipiZIDE (GLUCOTROL) 5 mg tablet take one tablet by mouth daily at 6:00 PM Additional instructions: 30 minutes before breakfast 90 tablet 04/28/2025 9:[address] (CYMBALTA) 30 mg capsule take one capsule by mouth daily at 6:00 AM 90 capsule 04/28/2025 9:32 [address] EDT[address] D[address] DR (CYMBALTA) 30 mg capsule take one capsule by mouth daily at 6:00 AM [address] (CYMBALTA) 30 mg capsule take two capsule by mouth daily at 6:00 AM 180 capsule 05/01/2025 9:31 PM EDT5Active Active Problems ProblemNoted DateDiagnosed TjseSqafcb27/24/2016Deficiency xdyrvi0805/15/2016 Dissecting cellulitis of scalp09/16/2012Hidradenitis kvuohhogjok98/07/2013 Zbabxhszxw11/07/2013 Immunizations ImmunizationAdministration DatesNext Duetetanus toxoid (TT) hdszpzf8608/10/2012 Family History Medical HistoryRelationCommentsDiabetesFatherhigh blood pressure [Other]Father father's side of familybreathing problems [Other]Mothermother's side of family high blood pressure [Other]Mothermother's side of familyRelationStatusComments FatherMother Social History Tobacco UseTypesPacks/DayYears UsedDateSmoking Tobacco: Every DayCigarettes Smokeless Tobacco: NeverAlcohol UseStandard Drinks/WeekCommentsYes0 (1 standard drink = 0.6 oz pure alcohol)occasionally-beerArea Deprivation IndexAnswerDate RecordedNational Score (1-100), lower number is lower riskNot on file04/02/2021 State Score (1-10), lower number is lower riskNot on file04/02/2021ata from: https://www.neighborhoodatlas.medicine.[facility].edu/. Last address used for calculationNot on file04/02/2021ex and Gender InformationValueDate RecordedSex Assigned at BirthNot on fileLegal NtqCrvq0509/08/2012 2:49 PM ESTGender Identity Not on fileSexual OrientationNot on file Last Filed Vital Signs Vital SignReadingTime TakenCommentsBlood Oomilmce968/7006/02/2016 4:10 PM EDT Dbryr106106/02/2016 4:10 PM NFAYdhkyqamcwr76.2 ??C (97.2 ??F)06/02/2016 4:10 PM EDTRespiratory Ezdn8698 4:10 PM EDTOxygen Nasljlvbhi33%06/02/2016 4:10 PM EDTInhaled Oxygen Concentration--Pnqmsp26 kg (216 lb 0.8 oz)06/02/2016 1:05 PM EMYIvovyp597 cm (6' 0.05 )06/02/2016 1:05 PM EDTBody Mass Index29.26 06/02/2016 1:05 PM EDT Plan of Treatment Health MaintenanceDue DateLast DoneCommentsAnxiety Lmotymtrb45/08/1981Depression Riluthusx73/08/1981DTaP,Tdap,Td Vaccine (1 - Tdap)1981Lipid Screening 1997CT Auwahqdgcgre32/08/2008Cologuard (FIT-DNA)2007Fecal Occult Blood2007Prostate Cancer Screening Odimxbcqjz45/08/2008Sigmoidoscopy 2007Pneumococcal Vaccine: 50+ (1 of 1 - PCV)2012Shingrix Vaccine (1 of 2)08/17/20123548Vkicgjofbcg58Colorectal Cancer Screening 06/02/2017Diabetes Bkjlojate83, 04/18/2019, 11/09/2017, Additional history existsCovid-19 Vaccine (1 - 2024- season)2025 Influenza Vaccine (#1)2025RSV Vaccine (1 - 1-dose 75+ series)2037 Hepatitis C OkusbaoysGkyyewoen53/23/2016HIV JsybdomcnObstoldtz75/09/2019, 05/02/2016 Procedures Procedure NamePriorityDate/TimeAssociated DiagnosisCommentsGLYCOHEMOGLOBIN (A1C) 01/02/2020 4:58 AM EDT HIV COMBO (AC)04/18/2019 5:09 AM EDT YGKZCPJVWME39/24/2016 8:20 AM EDT HEP REMOTE PANEL NTCglndmb01/23/2016 11:47 AM EDT Dissecting cellulitis of scalp Hidradenitis suppurativa from Last 3 Months or Most Recently Relevant to Health Maintenance Results * (ABNORMAL) GLYCOHEMOGLOBIN (A1C) (01/02/2020 4:58 AM EDT)ComponentValueRef RangeTest MethodAnalysis TimePerformed AtPathologist SignatureHemoglobin A1C 7.4(H)4.7 - 6.4 %[facility]ORATORYComment: Interpretation: ? Standardized A1c Good control or normal: ??4-6% (60-120 mg/dL avg) Moderate control: ?6.1-8.0% (120-180 mg/dL avg) Poor control: >8.0% (180 mg/dL avg) With 4% as a baseline, each 1% increase = 30 mg/dL increase in average glucose. ??Taken from DCCT (Diabetes Control Complications Trial) Estimated Average Idsffvx404qh/dlMAR[facility]OS[facility] LABORATORYComment: Estimated Average Glucose is a calculated value from HgbA1C and is hospital sales representative of the average blood glucose level in the last 2-3 month period. Specimen (Source)Anatomical Location / LateralityCollection Method / Volume Collection TimeReceived Time01/02/2020 4:58 AM EDT01/02/2020 5:03 AM EDT Narrative Authorizing ProviderResult TypeResult StatusProvider CchsLABORATORYFinal Result Performing OrganizationAddressCity/State/ZIP CodePhone Number [facility] [address] [place] [phone] * HIV COMBO (AC) (04/18/2019 5:09 AM EDT)ComponentValueRef RangeTest Method Analysis TimePerformed AtPathologist SignatureHIV ComboNonreactiveNonreactive [facility] LABORATORYSpecimen (Source)Anatomical Location / LateralityCollection Method / VolumeCollection TimeReceived Time04/18/2019 5:09 AM EDT04/18/2019 5:14 AM EDT Narrative Authorizing ProviderResult TypeResult StatusProvider CchsLABORATORYFinal Result Performing OrganizationAddressCity/State/ZIP CodePhone Number [facility] [address] [place] [phone] * COLONOSCOPY (06/02/2016 8:20 AM EDT)ComponentValueRef RangeTest MethodAnalysis TimePerformed AtPathologist SignatureTranscriptThe [facility] G[facility] Patient Name: Last Mcclain Procedure Date: 06/02/2016 8:20 AM Date of : 1960 Admit Type: Outpatient Age: 55 Room: [facility] Room B Gender: Male Note Status: Finalized Attending MD: Olivia Fletcher MD Procedure: ? Colonoscopy Indications: ? Iron deficiency anemia secondary to chronic blood loss Providers: ? Olivia Fletcher MD Patient Profile: ? Last Colonoscopy: none. The patient's first colonoscopy ? is today. Referring Physician: Medicines: ? Monitored Anesthesia Care Complications: ? No immediate complications. Procedure: ? Pre-Anesthesia Assessment: ? - Prior to the procedure, a History and Physical was ? performed, and patient medications and allergies were ? reviewed. The patient is competent. The risks and ? benefits of the procedure and the sedation options and ? risks were discussed with the patient. All questions ? were answered and informed consent was obtained. Patient ? identification and proposed procedure were verified by ? the physician, the nurse and the anesthesiologist in the ? pre-procedure area. Mental Status Examination: alert and ? oriented. Airway Examination: normal oropharyngeal ? airway and neck mobility. Respiratory Examination: clear ? to auscultation. CV Examination: normal. Prophylactic ? Antibiotics: The patient does not require prophylactic ? antibiotics. Prior Anticoagulants: The patient has taken ? no previous anticoagulant or antiplatelet agents. ASA ? Grade Assessment: II - A patient with mild systemic ? disease. After reviewing the risks and benefits, the ? patient was deemed in satisfactory condition to undergo ? the procedure. The anesthesia plan was to use monitored ? anesthesia care (MAC). Immediately prior to ? administration of medications, the patient was ? re-assessed for adequacy to receive sedatives. The heart ? rate, respiratory rate, oxygen saturations, blood ? pressure, adequacy of pulmonary ventilation, and ? response to care were monitored throughout the ? procedure. The physical status of the patient was ? re-assessed after the procedure. ? After I obtained informed consent, the scope was passed ? under direct vision. Throughout the procedure, the ? patient's blood pressure, pulse, and oxygen saturations ? were monitored continuously. The Colonoscope was ? introduced through the anus and advanced to the ? transverse colon. The colonoscopy was performed without ? difficulty. The patient tolerated the procedure well. ? The quality of the bowel preparation was poor. Total Procedure Duration: 0 hours 20 minutes 44 seconds Findings: ? Internal hemorrhoids were found during retroflexion. The hemorrhoids ? were moderate and Grade II (internal hemorrhoids that prolapse but ? reduce spontaneously). ? Unable to complete due to poor prep. Impression: ?- Preparation of the colon was poor. ? - Internal hemorrhoids. ? - No specimens collected. Recommendation: ?- Patient has a contact number available for ? emergencies. The signs and symptoms of potential delayed ? complications were discussed with the patient. Return to ? normal activities tomorrow. Written discharge ? instructions were provided to the patient. ? - Will discuss with patient re-prep and BE. ? - Resume previous diet. ? - Continue present medications. ? - No recommendation at this time regarding repeat ? colonoscopy. ? - Return to my office in 2 weeks. ? - Patient has a contact number available for ? emergencies. The signs and symptoms of potential delayed ? complications were discussed with the patient. Return to ? normal activities tomorrow. Written discharge ? instructions were provided to the patient. ? - Repeat colonoscopy at appointment to be scheduled ? because the bowel preparation was poor. Attending Participation: ? I personally performed the entire procedure. MD Olivia Jenkins MD 06/02/2016 2:33:25 PM This report has been signed electronically by Olivia Fletcher MD Number of Addenda: 0 Note Initiated On: 06/02/2016 8:20 AM Estimated Blood Loss: ? Estimated blood loss was minimal. Procedure Start: 2:05:38 PM Procedure End: 2:26:22 PMDIGESTIVE DISEASE INSTITUTESpecimen (Source)Anatomical Location / LateralityCollection Method / VolumeCollection TimeReceived Time 06/02/2016 8:20 AM EDT Narrative Authorizing ProviderResult TypeResult StatusCchs Provider MedinaDIGESTIVE DISEASE REGIONALFinal ResultPerforming OrganizationAddressCity/State/ZIP Code Phone Number [facility] [address] [place] [address] [facility] * HEP REMOTE PANEL BL (05/02/2016 11:47 AM EDT)ComponentValueRef RangeTest MethodAnalysis TimePerformed AtPathologist SignatureHep B Core Ab, Total RixgbhvmEqmadbts84/23/2016 6:18 PM EDTCLEVELAND CLINIC MAIN LABORATORYHep C Antibody RZJcgabtyrJnagxcvh05/23/2016 6:19 PM EDTCLEVELAND CLINIC MAIN HUQFKQVNMRMLiRwVgigripwOlhytjfe84/23/2016 6:19 PM EDTCLEVELAND CLINIC MAIN LABORATORYHep B Surface Ab, IpyxLshuccjbZtrooppf43/23/2016 6:20 PM EDT [facility] MAIN LABORATORYComment:NEGATIVESpecimen (Source)Anatomical Location / LateralityCollection Method / VolumeCollection TimeReceived Time Blood specimen (specimen)BLOOD SPECIMEN / Testumq4005/02/2016 11:47 AM EDT 05/02/2016 11:49 AM EDT Narrative Authorizing ProviderResult TypeResult StatusAlok Paul MDLABORATORYFinal Result Performing OrganizationAddressCity/State/ZIP CodePhone Number [facility] [address] [place] [address] from Last 3 Months or Most Recently Relevant to Health Maintenance Insurance Care Teams Team MemberRelationshipSpecialtyStart DateEnd Date Ralph Lizama (Historical) PCP - Qfvslaz46/6/16
--- OUTSIDE RECORDS SUMMARY | 2025-07-22 21:13 | XMS_ITS | Patient Health Record ---
Author Organization [facility] es Address [address] [place] [address] Care Team Providers Care Tufter Operator Name Role Phone Dr. Sea Mac Primary Care Provider Reason For Referral No Information Medications Medication SIG (Take, Route, Frequency, Duration) Notes Start Date End Date Status Chlorhexidine Gluconate 0.12 % Solution as directed Mouth/Throat twice a day (bid); Duration: 20 days ctive Encounters Encounter Location Date Provider Diagnosis [facility] [address] [place] [address] 07/17/2025 Sea Mac Encounter for den cris examination and cleaning with abnormal findings Z01.21 ; Other dental procedure status Z98.818 ; Dental caries on pit and fissure surface penetrating into dentin K02.52 ; Chronic periodontitis, generalized, slight K05.321 and Cracked tooth K03.81 Assessments Encounter Date Diagnosis (ICD Code) Assessment Notes Treatment Notes Treatment Clinical Notes Section Notes 07/17/2025 Encounter for dental examination and cleaning with abnormal findings (ICD-10 - Z01.21) 07/17/2025Other dental procedure status (ICD-10 - Z98.818)07/17/2025Dental caries on pit and fissure surface penetrating into dentin (ICD-10 - K02.52) 07/17/2025hronic periodontitis, generalized, slight (ICD-10 - K05.321) 5Cracked tooth (ICD-10 - K03.81) Plan Of Treatment Next Appt Details Provider Name:Eveline Medrano, 10/25/2025 01:30:00 PM, [address], [place], [address], Provider Name:Sea Guthriezk, 0 11/21/2025 04:30:00 PM, [address], [place], [address],
--- OUTSIDE RECORDS SUMMARY | 2025-07-22 21:13 | XMS_ITS | Clinical Summary ---
Author Organization [facility] Address [address] [place] [address] [place] [address] Care Team Providers Care Manager Sales And Marketing Name Role Phone Jhon Borges MD Unavailable Allergies Active AllergyReactionsCriticalityNoted DateCommentsSulfa AntibioticsNausea and BydpkoctVmqk40/15/2012 Medications MedicationSigDispense QuantityRefillsLast FilledStart DateEnd DateStatus metformin 850 MG PO TABS take 1 Tab by mouth 2 times daily.Active ondansetron (ZOFRAN) 4 MG PO TABS Indications:Hidradenitis suppurativa,Abscess of scrotumtake 1 Tab by mouth every 8 hours as needed for Nausea. 18 Tab ctive OMEPRAZOLE daily.Active lisinopril 20 MG Tab take 40 mg by mouth daily..Active ferrous sulfate 324 (65 Fe) MG Tab DR take 324 mg by mouth daily..Active benzoyl peroxide 5 % Gel Apply to lesions twice daily. 90 g Active clindamycin 1 % Solution use thin film on affected areas twice daily 60 mL Active hydrocortisone 1 % Cream Apply to eczematous lesions 1 Tube 02/17/2017Active docusate 100 MG Cap take 1 capsule by mouth 2 times daily as needed for Constipation 1st Line.. 60 capsule 02/17/2017Active Adalimumab 40 MG/0.8ML Prefilled Syringe Kit injection Inject 80 mg on 03/01/17. Inject 40 mg 03/15/17. Continue 40 mg monthly thereafter. 1 Each 02/17/2017Active chlorhexidine (HIBICLENS) 4 % Liquid Indications:Hidradenitis suppurativa,Dissecting cellulitis of scalpWash affects areas of body daily 946 mL Active amLODIPine 5 MG Tab tablet take 1 tablet by mouth daily. 30 tablet Active polyethylene glycol Pack packet take 1 packet by mouth 2 times daily. 100 packet Active Sennosides 17.2 MG Tab take 1 tablet by mouth daily. 30 tablet Active CUSTOM MEDICATION Wound Care supplies : 1-Mesalt, 1 box 2- Allevyn Foam Dressing 6x6 1 box 1 Each Active sodium hypochlorite 1/4 strength (0.125%) Solution Apply 1 Application topically daily. Irrigate the wound with dakin daily 1 Bottle Active naproxen (Naprosyn) 500 MG tablet Take 1 tablet by mouth 2 times daily with meals for 10 days. 20 tablet 06/30/2025tive Naproxen Sodium (ALEVE) 220 MG Cap Indications:Hidradenitis suppurativatake 880 mg by mouth 3 times daily. Prn 06/30/2025Discontinued doxycycline monohydrate 100 MG Cap capsule take 1 capsule by mouth every 12 hours. 60 capsule Discontinued oxyCODONE-acetaminophen 5-325 MG Tab per tablet take 1-2 tablets by mouth every 6 hours as needed. 40 tablet Discontinued clindamycin 300 MG Cap Take 1 capsule by mouth 3 times daily. 21 capsule Discontinued oxyCODONE 5 MG Tab tablet Take 1 tablet by mouth every 4 hours as needed for Severe Pain for up to 30 doses. 30 tablet Discontinued metronidazole 500 MG Tab tablet Take 1 tablet by mouth every 8 hours. 21 tablet Discontinued naproxen 500 MG Tab tablet Take 1 tablet by mouth 2 times daily as needed. 30 tablet Discontinued clindamycin 300 MG capsule Take 1 capsule by mouth 2 times daily for 10 days. 20 capsule 11/21Expired Active Problems ProblemNoted DateDiagnosed DateGluteal eidnuhd8805/30/2017Pain in buttock 02/15/2017GERD (gastroesophageal reflux disease)02/14/2017Essential (primary) zijfhdfppetn27/24/2017Iron deficiency yfmmks3401/31/20173683Nygxcfuyebhbrl14/24/2017 Tobacco abuse01/31/2017Marijuana abuse01/31/2017Type 2 diabetes mellitus, whcycxqgjcad55/16/2012Hidradenitis ljfcpvihfjv64/09/2012Dissecting cellulitis of scalp05/18/2012Suppurative boozuymkewix52/15/2012bscess of axilla, left 01/20/2012bscess of arm, right01/20/2012bscess of multiple sites of head and neck01/20/20129981Ywkbyihfivrj28/12/2012Diabetes fmcecibj20/12/2012 Resolved Problems ProblemNoted DateDiagnosed DateResolved ZiquKtxmon22 Encounters DateTypeDepartmentCare GatyDggvyqlqizf71/21/2025 9:36 PM EST - 06/30/2025 11:40 PM [facility] Emergency Department [address] [place] [address] Discharge Disposition: Home or Self Care06/30/2025Travelfrom Last 3 Months Family History Medical HistoryRelationNameCommentsNo known problemsBrotherDiabetesFather HypertensionFatherNo known problemsMotherNo known problemsSisterAnesth Problems Neg HxRelationNameStatusCommentsBrotherFatherAliveMotherSister Social History Tobacco UseTypesPacks/DayYears UsedDateSmoking Tobacco: Every DayCigarettes0.530 Smokeless Tobacco: Never Tobacco Cessation:Ready to Q uit: No; Counseling Given: Yes Comments:5-6 per day Alcohol UseStandard Drinks/WeekCommentsNo0 (1 standard drink = 0.6 oz pure alcohol)4 years no alcoholAUDIT-CAnswerDate RecordedQ1: How often do you have a drink containing alcohol?Never06/30/2025Q2: How many drinks containing alcohol do you have on a typical day when you are drinking?Patient does not drink 06/30/2025Q3: How often do you have six or more drinks on one occasion?Never 06/30/2025Sex and Gender InformationValueDate RecordedSex Assigned at BirthNot on fileLegal BpqUpum8709/12/2012 7:15 PM ESTGender JqyambvjNdxq81/24/2017 1:53 AM EDTSexual OrientationNot on file Last Filed Vital Signs Vital SignReadingTime TakenCommentsBlood Gusaxovh745/8806/30/2025 11:00 PM EST Nuuos862106/30/2025 11:00 PM ETFBjgtosvlfsg54.7 ??C (98 ??F)06/30/2025 9:34 PM EST Respiratory Ikyj413508/30/2024 11:00 PM ESTOxygen Inqkurizcn36%06/30/2025 11:00 PM ESTInhaled Oxygen Concentration--Olblvo28.4 kg (201 lb 8 oz)06/16/2017 12:03 PM PGYRjfiml918.9 cm (6')06/30/2025 9:34 PM ESTBody Mass Index27.331 4:34 AM EDT Plan of Treatment Health MaintenanceDue DateLast DoneCommentsHIV SCREENING TQOQWCSYOZ92/08/1978 PNEUMOCOCCAL VACCINE SERIES (1 of 2 - PCV)1981TDAP (ADULT)1981 COLORECTAL CANCER SCREENING OMTZNXQBRN90/08/2008LUNG CANCER SCREENING DISCUSSION 2012ZOSTER (SHINGLES) VACCINE (1 of 2)2012LIPID QZNNKCJMI05/11/2017 05/20/2012PROSTATE CANCER SCREENING ATZOOTLGVQ65/08/2018COVID-19 VACCINE (2 - season)/INFLUENZA VACCINE (#1)2025TETANUS /, 08/10/2012RSV VACCINE (1 - 1-dose 75+ series)2037 HEPATITIS C VIRUS OAGDAOHEEFtynopubp15/15/2012HEP B VACCINEAged OutNo longer eligible based on patient's age to complete this topic Procedures Procedure NamePriorityDate/TimeAssociated DiagnosisCommentsLIPID PANEL W CALCULATED ABDQkgssfh87/11/2012 11:11 AM EDT HEPATITIS BATTERY, VSYIXMRInvqzsb61/15/2012 8:32 AM EDT from Last 3 Months or Most Recently Relevant to Health Maintenance Results * (ABNORMAL) LIPID PANEL W CALCULATED LDL (05/20/2012 11:11 AM EDT)Component ValueRef RangeTest MethodAnalysis TimePerformed AtPathologist Signature XHLKSXEPJKK929<200 mg/dLLAB, OSUComment: [<200 mg/dL: Desirable] ?[200-239 mg/dL: ??Borderline High] [>239 mg/dL: High] TRIGLYCERIDES-TRIGE89<150 mg/dLLAB, OSUComment: [<150 mg/dL: Desirable] [150-199 mg/dL: Borderline] [200-499 mg/dL: High] [>500 mg/dL: Very High] HDL KBTUINKGPMQ23(L)>60.0 mg/dLLAB, OSUComment: [<40 mg/dL: Low (High Risk)] [>59 mg/dL: High (Low Risk)] LDL CHOLESTEROL, QHPJVSCEVO168 - 99 mg/dLLAB, OSUComment: [<100 mg/dL: Optimal] ?[100-129 mg/dL: ??Near Optimal] ?[130-159 mg/dL: ??Borderline High] ?[160-189 mg/dL: ??High] [>189 mg/dL: Very High] CHOLESTEROL, TOTAL/HDL6.4(H)<4.5LAB, OSUComment:[<4.5: Low risk]NON-HDL CHOLESTEROL (CHOL-HDL)98<130 mg/dLLAB, OSUSpecimen (Source)Anatomical Location / LateralityCollection Method / VolumeCollection TimeReceived Time05/20/2012 11:11 AM EDT1 12:09 PM EDT Narrative Authorizing ProviderResult TypeResult StatusJoni Young MDCHEMISTRY ORDERABLES Final ResultPerforming OrganizationAddressCity/State/ZIP CodePhone Number [facility] [address] [place] [address] * HEPATITIS BATTERY, CHRONIC (01/23/2012 8:32 AM EDT)ComponentValueRef RangeTest MethodAnalysis TimePerformed AtPathologist SignatureHep B Surf AGNEGATIVENEG LAB, OSUHep B Surf ABNEGATIVENEGLAB, OSUHepatitis B Core Total AbNEGATIVENEG LAB, OSUHEP C ABNEGATIVENEGLAB, OSUSpecimen (Source)Anatomical Location / LateralityCollection Method / VolumeCollection TimeReceived Time01/23/2012 8:32 AM EDT01/23/2012 9:24 AM EDT Narrative Authorizing ProviderResult TypeResult StatusChargrey Dutton MDIMMUNOLOGY ORDERABLESFinal ResultPerforming OrganizationAddressCity/State/ZIP CodePhone Number LAB, [facility] [address] [place] [address] from Last 3 Months or Most Recently Relevant to Health Maintenance Insurance Advance Directives For more information, please contact: [phone] (7:30 AM - 6PM [place], Thursday-Thursday) * Full Code (Latest Code Status on File) Date ActivatedDate IsphqnzdnqcIevawcaq08/21/2017 4:12 AM06/06/2017 2:11 PM * Full Code Date ActivatedDate InactivatedComments02/14/2017 3:16 PM02/17/2017 7:02 PM * Full Code Date ActivatedDate InactivatedComments01/31/2017 4:31 PM02/03/2017 4:34 PM * Full Code Date ActivatedDate DynlbjixevkFarijhre56/25/2013 1:22 PM06/13/2013 2:22 PM * Full Code Date ActivatedDate InactivatedComments11/01/2012 1:33 PM11/03/2012 7:40 PM Care Teams Team MemberRelationshipSpecialtyStart DateEnd Date Jhon Borges MD [address] [address] 02/15/17
--- OUTSIDE RECORDS SUMMARY | 2025-07-22 21:13 | XMS_ITS | Clinical Summary ---
Author Organization [facility] Rep Address [address] [place] [address] Care Team Providers Care Sports Development Officer Name Role Phone Hansel Potts MD Primary Care Provider [phone] Active Problems ProblemNoted DateDiagnosed DateType 2 diabetes mellitus with diabetic polyneuropathy, without long-term current use of gwqpbly99/08/2022Current smoker 10/12/2020 Overview (05/24/2022): Added secondary to documentation in Social History. Wjhuazp5404/03/2020Deficiency vwjcjg8404/03/2020Essential (primary) hypertension 04/03/20203830Dqhhuvwrjsppyu86/25/2020Peripheral neuropathic pain04/03/2020GERD (gastroesophageal reflux disease)04/03/2020Iron deficiency dnjfpv7304/03/2020 Cigarette nicotine dependence with nicotine-induced pwdcyhbw23/29/2016Chronic intractable pain08/20/20129461Sxhltkikqqjx28/20/0948Czirhxkar00/29/2011 Immunizations ImmunizationAdministration DatesNext DueModerna SARS-CoV-2 Ixrjzkkvqpr28/27/2021 Tetanus toxoid, /01/2013 Family History Medical HistoryRelationNameCommentsDiabetesFatherDementiaMotherAsthmaOtherfamily historyCoronary artery diseaseOtherfamily historyDiabetesOtherfamily history HypertensionOtherfamily historyStrokeOtherfamily historyRelationNameStatus CommentsFatherAliveMotherAliveOther Social History Tobacco UseTypesPacks/DayYears UsedDateSmoking Tobacco: Every DayCigarettes Smokeless Tobacco: NeverAlcohol UseStandard Drinks/WeekCommentsNo0 (1 standard drink = 0.6 oz pure alcohol)Sex and Gender InformationValueDate RecordedSex Assigned at BirthNot on fileLegal XmlSonx5803/10/2022 3:59 PM EDTGender Identity Not on fileSexual OrientationNot on file Last Filed Vital Signs Vital SignReadingTime TakenCommentsBlood Juoaesje824/9905/22/2022 1:03 PM EDT Ylzik0450 1:03 PM ATEEjnbbvglwmh26.9 ??C (98.4 ??F)05/22/2022 1:03 PM EDTRespiratory Phee2711 1:03 PM EDTOxygen Uizskgusoy21%05/22/2022 1:03 PM EDTInhaled Oxygen Concentration--Aahzwb540 kg (230 lb)05/22/2022 1:03 PM EDT Jmbmtt746.9 cm (6')06/06/2021 2:13 PM EDTBody Mass Index31.191 2:13 PM EDT Plan of Treatment Health MaintenanceDue DateLast DoneCommentsCT Asyofzcysasi88/08/1963Colonoscopy 1962Colorectal Cancer Ctpeymesx35/08/1963FIT-DNA1962FIT1962 FOBT1962Lipid Panel1962 7203Ugbprorvvljog97/08/1963MMR Vaccines (1 of 1 - Standard series)1963Depression Cdsttufuj21/08/1975DTaP/Tdap/Td Vaccines (1 - Tdap)1981Pneumococcal Vaccine: 50+ Years (1 of 1 - PCV)2012Zoster Vaccines (1 of 2)2012COVID-19 Vaccine (2 - season)2025 01/03/2021Influenza Vaccine (#1)2025RSV Immunization for Adults (1 - 1- dose 75+ series)2037HIB VaccinesAged OutNo longer eligible based on patient's age to complete this topicHPV VaccinesAged OutNo longer eligible based on patient's age to complete this topicHepatitis A VaccinesAged OutNo longer eligible based on patient's age to complete this topicHepatitis B VaccinesAged OutNo longer eligible based on patient's age to complete this topicIPV Vaccines Aged OutNo longer eligible based on patient's age to complete this topic Meningococcal B VaccineAged OutNo longer eligible based on patient's age to complete this topicMeningococcal VaccineAged OutNo longer eligible based on patient's age to complete this topicRSV Immunization under 20 MonthsAged OutNo longer eligible based on patient's age to complete this topicRotavirus Vaccines Aged OutNo longer eligible based on patient's age to complete this topic Care Teams Team MemberRelationshipSpecialtyStart DateEnd Date Hansel Potts MD [address] [place] [address] PCP - Nkmcths11/5/19
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
--- OUTSIDE RECORDS SUMMARY | 2025-07-22 21:13 | XMS_ITS | Encounter Summary ---
Author Organization [facility] Address [address] [place] [id number] Care Team Providers Care Religious Education Director Name Role Phone Consultants, General Medical Primary Care Provid er Unavailable Encounter Details DateTypeDepartmentCare Team (Latest Contact Info)Apqpoxiwgux18/30/2025Travel Social History Tobacco UseTypesPacks/DayYears UsedDateSmoking Tobacco: Every DayCigarettes Smokeless Tobacco: NeverAlcohol UseStandard Drinks/WeekCommentsNo0 (1 standard drink = 0.6 oz pure alcohol)Sex and Gender InformationValueDate RecordedSex Assigned at BirthNot on fileLegal IlrOdau6805/01/2015 4:12 AM EDTGender Identity Not on fileSexual OrientationNot on filedocumented as of this encounter Plan of Treatment Not on file documented as of this encounter Visit Diagnoses Not on filedocumented in this encounter Care Teams Team MemberRelationshipSpecialtyStart DateEnd Consultants, General Medical PCP - GeneralInternal Medicine05/05/17documented as of this encounter
[2025-07-22] MEDS: HYDROCODONE/ACET 5-325 MG TABLET 2 TAB PO (21:25)
--- NOTE | 2025-07-23 04:17 | ED_ITS ---
HPI HPI - General Adult General Chief complaint: Dental/Oral Stated complaint: DENTAL ISSUE Time Seen by Provider: 07/22/25 20:38 Source: patient Mode of arrival: walk-in History of Present Illness HPI narrative: Patient is a 64-year-old male presenting to the emergency department for evaluation of tooth infection. Patient states that he saw his dentist last week and was diagnosed with dental caries and dental abscesses. He has been on clindamycin for the last 2 days. He is requesting pain medications as Tylenol and Motrin are not helping his symptoms. Other than the infection in his tooth, he is otherwise asymptomatic. Denies fevers or chills. No trouble breathing or swallowing. No chest pain or shortness of breath. Related Data Home Medications ?Medication ?Instructions ?Recorded ?Confirmed clindamycin HCl 150 mg capsule 150 mg PO Q8H 07/22/25 07/22/25 Previous Rx's ?Medication ?Instructions ?Recorded oxycodone-acetaminophen 5 mg-325 1 tab PO Q8H PRN pain 2 days #4 07/22/25 mg tablet tabs Allergies Allergy/AdvReac Type Severity Reaction Status Date / Time Sulfa (Sulfonamide AdvReac Nausea Verified 07/22/25 20:39 Antibiotics) Review of Systems ROS Status of ROS 10 or more systems reviewed and unremark able except as noted in history and below PFSH PFSH Social History Little interest or pleasure in doing things: not at all Feeling down, depressed, or hopeless: not at all Exam Narrative Exam Narrative: CONSTITUTIONAL: Well-appearing, answering questions and following commands appropriately SKIN: Was warm and dry. EYES: Sclerae white. EARS, NOSE, THROAT: Overall poor dentition with multiple dental caries. There is tender to percussion throughout the right upper/lower molars. There is no s ignificant facial swelling or fluctuance or appreciable drainable abscess. No neck swelling. No trismus. No TREE PRUNER. Speaking with a normal voice. RESPIRATORY: Nonlabored respirations CARDIOVASCULAR: Normal rate and regular rhythm. There is no S3, S4, murmur, rub. GASTROINTESTINAL: Abdomen is nondistended. MUSCULOSKELETAL: No peripheral edema. NEUROLOGIC: Patient is awake and alert. Facies were symmetrical. Constitutional Vital Signs, click to edit/add: Last Vital Signs Temp 98.0 F 07/22/25 20:40 Pulse 88 07/22/25 20:40 Resp 20 12/13/25 20:40 BP 173/99 H 07/22/25 20:40 Pulse Ox 100 07/22/25 20:40 O2 Del Method Room Air 07/22/25 20:40 Course Vital Signs Vital signs: Vital Signs Temperature 98.0 F 07/22/25 20:40 Pulse Rate 88 07/22/25 20:40 Respiratory Rate 20 07/22/25 20:40 Blood Pressure 173/99 H 07/22/25 20:40 Pulse Oximetry 100 07/22/25 20:40 Oxygen Delivery Method Room Air 07/22/25 20:40 Temperature 98.0 F 07/22/25 20:40 Pulse Rate 88 07/22/25 20:40 Respiratory Rate 20 07/22/25 20:40 Blood Pressure 173/99 H 07/22/25 20:40 Pulse Oximetry 100 07/22/25 20:40 Oxygen Delivery Method Room Air 07/22/25 20:40 Medical Decision Making MDM Narrative Medical decision making narrative: Patient is a 64-year-old male presenting to the emergency department for management of pain related to his dental infection/abscesses. His vital signs on arrival are significant for hypertension, otherwise were within normal limits. He is afebrile and hemodynamically stable. Examination was consistent with overall poor dentition with multiple caries. No evidence of necrotizing gingivitis. No concern for airway compromise. Patient's was given [place] to take when he gets home. He was also given a short course of Everett 5 mg x 4 tablets until he can see the oral surgeon on Thursday. Return precautions were given including any new or concerning symptoms. Patient understands and agrees to the plan. FINAL IMPRESSION: #Acute dental infections of the right upper/lower molars DISPOSITION: Discharged home CONDITION: Good Discharge Plan Discharge Chief Complaint: Dental/Oral Clinical Impression: Dental abscess Patient Disposition: Home, Self-Care Time of Disposition Decision: 21:05 Condition: Good Mode of Transportation: Private Vehicle Prescriptions / Home Meds: New oxycodone-acetaminophen 5-325 mg tablet 1 tab PO Q8H PRN (Reason: pain) 2 Days Qty: 4 0RF No Action clindamycin HCl 150 mg capsule 150 mg PO Q8H Print Language: Latvian Instructions: Dental Abscess (ED) Discharge Date/Time: 07/22/25 21:31
== END 2025-07-22 21:31 | disposition home or self-care (01) ==
PROVIDERS: Emergency Provider Student in an Organized Health Care Education/Training Program; PCP Internal Medicine
DX: K04.7 Periapical abscess without sinus (principal)
CPT/HCPCS: 99283